=== PATIENT | female | born 1995 | race Caucasian/White ===

== ENCOUNTER 2017-08-07 16:17 | Emergency (ER) | payer SELFPAY ==
[~2017-08-07] VITALS: Ht 157.5 cm; Wt 96.0 kg
[2017-08-07 16:56] VITALS: BP 130/82; PULSE 79; RESP 17; TEMP 98.5; O2SAT 99
--- NOTE | 2017-08-07 17:50 | PD ---
HPI Chief Complaint: Syncope/Near-Syncope Time Seen by Provider: 17:38 Travel History International Travel<30 days: No Contact w/Intl Traveler<30days: No Traveled to known affect area: No History of Present Illness HPI Ms. Mendez comes in complaining of 2 or 3 weeks worth of pain.... And pain to her left adnexal area as she points to her body. She describes that pain as sharp, about 4 or 5 out of 10, nonradiating. Patient denies any alleviating or aggravating factors. Patient denies any associated factors such as fever, rash , nausea, vomiting, diarrhea, No known drug allergy Patient denies any significant past medical history and past surgical history PFSH Social History Tobacco Use: No Allergies-Medications (Allergen,Severity, Reaction): Coded Allergies: No Known Allergies (Unverified , 08/08/17) Reported Meds & Prescriptions Reported Meds & Active Scripts Active Macrobid (Nitrofurantoin Monohydrate Macrocrystals) 100 Mg Capsule 100 Mg PO BID 5 Days Reported Mirena (Levonorgestrel (Iud)) 20 Mcg/24 Hour (5 Years) Iud 1 Ea I-UTERINE ONCE Review of Systems General / Constitutional: No: Fever Eyes: No: Visual changes HENT: No: Headaches Cardiovascular: No: Chest Pain or Discomfort Respiratory: No: Shortness of Breath Gastrointestinal: Positive: Abdominal Pain (Left adnexal) Genitourinary: No: Dysuria Musculoskeletal: No: Pain Skin: No Rash Neurologic: No: Weakness Psychiatric: No: Depression Endocrine: No: Polydipsia Hematologic/Lymphatic: No: Easy Bruising Physical Exam Narrative GENERAL: SKIN: Warm and dry. HEAD: Atraumatic. Normocephalic. EYES: Pupils equal and round. No scleral icterus. No injection or drainage. ENT: No nasal bleeding or discharge. Mucous membranes pink and moist. NECK: Trachea midline. No JVD. CARDIOVASCULAR: Regular rate and rhythm. RESPIRATORY: No accessory muscle use. Clear to auscultation. Breath sounds equal bilaterally. GASTROINTESTINAL: Abdomen soft, nondistended. Mild tenderness to palpation over the left adnexal region. MUSCULOSKELETAL: Extremities without clubbing, cyanosis, or edema. No obvious deformities. NEUROLOGICAL: Awake and alert. No obvious cranial nerve deficits. Motor grossly within normal limits. Five out of 5 muscle strength in the arms and legs. Normal speech. PSYCHIATRIC: Appropriate mood and affect; insight and judgment normal. Data Data Last Documented VS Vital Signs Date Time Temp Pulse Resp B/P (MAP) Pulse Ox O2 Delivery O2 Flow Rate FiO2 08/07/17 21:39 08/07/17 17:55 80 19 100 Room Air 08/07/17 16:56 98.5 Orders Orders Complete Blood Count With Diff (08/07/17 16:58) Comprehensive Metabolic Panel (08/07/17 16:58) Urinalysis - C+S If Indicated (08/07/17 16:58) Ed Urine Pregnancytest Poc (08/07/17 16:58) Gc And Chlamydia Pcr (08/07/17 17:50) Type And Screen (08/07/17 17:50) Beta Hcg (Quant/Titer) (08/07/17 17:54) Us Pelvis (Ques Pr/Ect)W Trans (08/07/17 ) Mandatory Outpatient Referral (08/07/17 20:41) Ed Discharge Order (08/07/17 21:11) Labs Laboratory Tests Test 08/07/17 17:05 08/07/17 17:54 Urine Color YELLOW Urine Turbidity CLEAR Urine pH 6.0 Urine Specific [place] 1.029 Urine Protein TRACE mg/dL Urine Glucose (UA) NEG mg/dL Urine Ketones NEG mg/dL Urine Occult Blood NEG Urine Nitrite NEG Urine Bilirubin NEG Urine Urobilinogen 2.0 MG/DL Urine Leukocyte Esterase SMALL Urine RBC 1 /hpf Urine WBC 6 /hpf Urine Squamous Epithelial Cells 3 /hpf Urine Bacteria RARE /hpf Urine Mucus FEW /lpf Microscopic Urinalysis Comment CULT NOT INDICATED Chlamydia trachomatis DNA (PCR) NOT DETECTED Neisseria gonorrhoeae DNA (PCR) NOT DETECTED White Blood Count 5.2 TH/MM3 Red Blood Count 5.23 MIL/MM3 Hemoglobin 13.5 GM/DL Hematocrit 41.9 % Mean Corpuscular Volume 80.1 FL Mean Corpuscular Hemoglobin 25.7 PG Mean Corpuscular Hemoglobin Concent 32.1 % Red Cell Distribution Width 15.1 % Platelet Count 276 TH/MM3 Mean Platelet Volume 8.8 FL Neutrophils (%) (Auto) 63.3 % Lymphocytes (%) (Auto) 24.1 % Monocytes (%) (Auto) 9.8 % Eosinophils (%) (Auto) 2.0 % Basophils (%) (Auto) 0.8 % Neutrophils # (Auto) 3.3 TH/MM3 Lymphocytes # (Auto) 1.3 TH/MM3 Monocytes # (Auto) 0.5 TH/MM3 Eosinophils # (Auto) 0.1 TH/MM3 Basophils # (Auto) 0.0 TH/MM3 CBC Comment DIFF FINAL Differential Comment Blood Urea Nitrogen 14 MG/DL Creatinine 1.02 MG/DL Random Glucose 71 MG/DL Total Protein 7.6 GM/DL Albumin 3.6 GM/DL Calcium Level 9.0 MG/DL Alkaline Phosphatase 75 U/L Aspartate Amino Transf (AST/SGOT) 11 U/L Alanine Aminotransferase (ALT/SGPT) 17 U/L Total Bilirubin 1.2 MG/DL Sodium Level 138 MEQ/L Potassium Level 4.3 MEQ/L Chloride Level 104 MEQ/L Carbon Dioxide Level 23.3 MEQ/L Anion Gap 11 MEQ/L Estimat Glomerular Filtration Rate 68 ML/MIN Human Chorionic Gonadotropin, Quant 221 MIU/ML [facility] Medical Decision Making Medical Screen Exam Complete: Yes Emergency Medical Condition: Yes Medical Record Reviewed: Yes Differential Diagnosis Ectopic versus TOA versus diverticular disease versus colitis Narrative Course CBC shows no evidence of leukocytosis, no anemia, normal platelet count and no left shift Electrolytes are all within normal limits, normal kidney function, normal liver function, and a quantitative hCG of only 221. UA showed some WBCs and leukocyte esterase positive however no bacteria. Consistent with sterile pyuria Blood bank type is B+ Based on the ultrasound there are 2 complex cysts in the ovary, left. This can be a corpus luteum or but a ectopic cannot be fully excluded, patient feels well enough and is requesting to go home, I advised the patient that she should follow-up with an FOUNDER / CEO, Dr. Morales is someone director motion picture for [facility]. And she is advised to follow-up for serial examinations and to ensure that she is not having early ectopic presentation. She was asked to return in 48 hours for repeat hCG, and to have that information forwarded to Dr. Morales for any further evaluation at that time. However the patient was told should she start having sharp more severe pain and she is recommended to return to the ER right away. Diagnosis Primary Impression: Sterile pyuria Additional Impression: , newly diagnosed Referrals: Radha Morales MD early , hcg 221, ultrasound did not show iup, but did show 2 complex ring enhancing structures on left adnexa. Patient Instructions: Abdominal Pain in (ED), General Instructions, Urinary Tract Infection in Women (DC) Additional Instructions: You are recommended to follow-up in 48 hours to have a repeat hCG quantitative test and your been given a mandatory referral to RUG RECEIVING CLERK Dr. Morales Scripts Nitrofurantoin Monohydrate Macrocrystals (Macrobid) 100 Mg Capsule 100 MG PO BID for Infection for 5 Days, #10 CAP 0 Refills Prov: Shaun Colon MD 08/07/17 Shaun Colon MD August 07, 2017 17:50
[2017-08-07 17:55] VITALS: BP 104/57; PULSE 80; RESP 19; O2SAT 100
[2017-08-07 18:09] LABS: BACTERIA, URINE RARE /hpf; BILIRUBIN, URINE NEG (NEG); BLOOD, URINE NEG (NEG); GLUCOSE,URINE NEG (NEG); KETONE, URINE NEG (NEG); MUCUS URINE FEW /lpf (OCC); NITRITE,URINE NEG (NEG); SQUAMOUS EPITHELIAL CELL URINE 3 /hpf (0-5); URINE COLOR YELLOW (YELLW/STRAW); URINE LEUKOCYTE ESTERASE SMALL (NEG)
[2017-08-07 18:25] LABS: AUTOMATED NEUTROPHIL # 3.3 TH/MM3 (1.8-7.7); BASOPHIL % 0.8 % (0.0-2.0); EOSINOPHIL # 0.1 TH/MM3 (0-0.4); HEMATOCRIT 41.9 % (35.0-46.0); HEMOGLOBIN 13.5 GM/DL (11.6-15.3); LYMPH % 24.1 % (9.0-44.0); LYMPHOCYTE # 1.3 TH/MM3 (1.0-4.8); MEAN CELL VOLUME 80.1 FL (80.0-100.0); MEAN CORPUSCULAR HEMOGLOBIN 25.7 PG (27.0-34.0); MEAN CORPUSCULAR HGB CONC 32.1 % (32.0-36.0); MEAN PLATELET VOLUME 8.8 FL (7.0-11.0); MONO % 9.8 % (0.0-8.0); MONOCYTE # 0.5 TH/MM3 (0-0.9); NEUT % 63.3 % (16.0-70.0); PLATELET COUNT 276 TH/MM3 (150-450); RED BLOOD COUNT 5.23 MIL/MM3 (4.00-5.30); RED CELL DISTRIBUTION WIDTH 15.1 % (11.6-17.2); WHITE BLOOD COUNT 5.2 TH/MM3 (4.0-11.0)
[2017-08-07] MEDS ORDERED: MIREIUD I-UTERINE (18:35)
[2017-08-07 18:45] LABS: ALBUMIN 3.6 GM/DL (3.4-5.0); AST (GOT) 11 U/L (15-37); BICARBONATE 23.3 MEQ/L (21.0-32.0); BLOOD UREA NITROGEN 14 MG/DL (7-18); CHLORIDE 104 MEQ/L (98-107); CREATININE 1.02 MG/DL (0.50-1.00); GLOMERULAR FILTRATION RATE 68 ML/MIN (>89); GLUCOSE,RANDOM 71 MG/DL (74-106); SODIUM (NA) 138 MEQ/L (136-145)
[2017-08-07 18:46] LABS: ALT (GPT) 17 U/L (10-53)
[2017-08-07 18:50] LABS: ALKALINE PHOSPHATASE 75 U/L (45-117); TOTAL BILIRUBIN ADULT 1.2 MG/DL (0.2-1.0); TOTAL PROTEIN 7.6 GM/DL (6.4-8.2)
--- NOTE | 2017-08-07 20:06 | RADRPT ---
EXAM DATE: 08/07/2017 7:57 PM EDT AGE/SEX: 22 years / Female INDICATIONS: Pelvic pain. CLINICAL DATA: This is the patient's initial encounter. Patient reports that signs and symptoms have been present for 1 week and indicates a pain score of 3/10. MEDICAL/SURGICAL HISTORY: . Pelvic pain. None. COMPARISON: No prior [facility] exams available for comparison. MEASUREMENTS: Uterus:__8.4 x 5.4 x 4.3 cm Endometrial Stripe:__4 mm Right Ovary:__ 2.6 x 2.5 x 1.7 cm Left Ovary:__ 4.8 x 3.4 x 2.6 cm FINDINGS: Uterus: There is an IUD in place. There is small amount of fluid within the endometrial cavity. It i s difficult to determine if this represents free fluid within the endometrial cavity versus an elonga mike cystic area measuring 1.0 x 0.3 x 1.0 cm. Right Ovary: Measures Left Ovary: There are 2 adjacent complex masses within the left adnexa measuring 2.2 x 1.7 x 2.0 and 2.3 x 1.7 x 2.3 cm. These both have ringlike appearances. Other: There is mild free fluid in the cul-de-sac. CONCLUSION: 1. No IUP is seen. 2. IUD in place. 3. Fluid within the endometrium which may represent fluid within the endometrial cavity versus an el ongated cystic area measuring 1.0 x 0.3 x 1.0 cm. No embryonic pole or yolk sac is seen within this f luid collection. 4. 2 complex masses seen in the left ovary. These are nonspecific. They both have ringlike appearanc e is. Follow-up is recommended. 5. Mild free fluid in the cul-de-sac. Electronically signed by: Alek Cook MD 08/07/2017 8:05 PM EDT
[2017-08-07] MEDS ORDERED: MACR100C2 PO (20:45)
== END 2017-08-07 21:40 | disposition home or self-care (01) ==
LOC: NEPD 16:17
DX: O23.40 Unspecified infection of urinary tract in pregnancy, unspecified trimester (principal); Z3A.00 Weeks of gestation of pregnancy not specified
CPT/HCPCS: 76700; 76817; 80053; 81001; 84702; 84703; 85025; 86850; 86900; 86901; 87491; 87591; 99284

== ENCOUNTER 2017-08-08 10:32 | Emergency (ER) | payer MEDICAID ==
[~2017-08-08 10:32] MED LIST: MACR100C2 PO; MIREIUD I-UTERINE
[2017-08-08 10:34] VITALS: BP 135/74; PULSE 84; RESP 16; TEMP 98.8; O2SAT 100
--- NOTE | 2017-08-08 12:32 | PD ---
HPI Chief Complaint: Related Problem Time Seen by Provider: 11:00 Travel History International Travel<30 days: No Contact w/Intl Traveler<30days: No Traveled to known affect area: No History of Present Illness HPI The patient is 22 years old. She is a 2 para 1 last menstruation was approximately 3 weeks prior. She was seen here yesterday. The beta hCG was elevated at 250 and her ultrasound was equivocal and 2 cystic-like lesions were seen in the right ovary. The patient has an IUD, Mirena device. She states she return to the ED to be sure she was not having ectopic . She also states she had lower pelvic pain. She has had no bleeding or discharge. No fever or vomiting. She reports a history of STD. She follows with the fitter arm[facility] service in [place]. Patient was also diagnosed with asymptomatic bacteriuria yesterday and was prescribed antibiotics which she filled and started taking. [facility] Past Medical History Medical History: Denies Significant Hx ?: LMP: 07/17/2017 Past Surgical History Surgical History: No Previous Surgery Social History Alcohol Use: No Tobacco Use: No Substance Use: No Allergies-Medications (Allergen,Severity, Reaction): Coded Allergies: No Known Allergies (Unverified , 08/08/17) Reported Meds & Prescriptions Reported Meds & Active Scripts Active Macrobid (Nitrofurantoin Monohydrate Macrocrystals) 100 Mg Capsule 100 Mg PO BID 5 Days Reported Mirena (Levonorgestrel (Iud)) 20 Mcg/24 Hour (5 Years) Iud 1 Ea I-UTERINE ONCE Review of Systems Except as stated in HPI: all other systems reviewed are Neg General / Constitutional: No: Fever Physical Exam Narrative GENERAL: 22-year-old female pleasant well-nourished well-developed no acute distress Vital Signs Date Time Temp Pulse Resp B/P (MAP) Pulse Ox O2 Delivery O2 Flow Rate FiO2 08/08/17 10:34 98.8 84 16 135/74 (94) 100 SKIN: Warm and dry. HEAD: Atraumatic. Normocephalic. EYES: Pupils equal and round. No scleral icterus. No injection or drainage. ENT: No nasal bleeding or discharge. Mucous membranes pink and moist. NECK: Trachea midline. No JVD. CARDIOVASCULAR: Regular rate and rhythm. RESPIRATORY: No accessory muscle use. Clear to auscultation. Breath sounds equal bilaterally. GASTROINTESTINAL: Soft. There is no significant tenderness. MUSCULOSKELETAL: Extremities without clubbing, cyanosis, or edema. No obvious deformities. NEUROLOGICAL: Awake and alert. No obvious cranial nerve deficits. Motor grossly within normal limits. Five out of 5 muscle strength in the arms and legs. Normal speech. PSYCHIATRIC: Appropriate mood and affect; insight and judgment normal. Data Data Last Documented VS Vital Signs Date Time Temp Pulse Resp B/P (MAP) Pulse Ox O2 Delivery O2 Flow Rate FiO2 08/08/17 10:34 98.8 84 16 135/74 (94) 100 Orders Orders Ed Discharge Order (08/08/17 12:23) [facility] Medical Decision Making Medical Screen Exam Complete: Yes Emergency Medical Condition: Yes Medical Record Reviewed: Yes Differential Diagnosis Ectopic, inevitable , intrauterine , UTI Narrative Course The patient returns 24 hours after incidental was found. The ultrasound yesterday was equivocal. Case was discussed with OB hospitalist. In the absence of a peritoneal signs on exam and with normal vital signs I think it is quite unlikely that there is an acute process now. Patient is likely to miscarry in due to the presence of the Mirena. 24-hour repeat beta and ultrasound is likely to be inconclusive and not helpful. Because the patient is stable she was advised to return tomorrow which would be 48 hours. She was also advised to follow-up with on-call obstetrics, Dr. Morales. This was provided to the patient yesterday as well. Referral to [facility] information also provided to the patient. She verbalized understanding. At this point I do not believe there is an ectopic and an ultrasound and additional blood work would not help one way or the other in determining. Diagnosis Primary Impression: Complicated Referrals: Radha Morales MD [facility] Med/Other Pt SpecificInfo: No Change to Meds Disposition: 01 DISCHARGE HOME Condition: Stable Pavan Cadena MD August 08, 2017 12:32
== END 2017-08-08 12:45 | disposition home or self-care (01) ==
LOC: NEPD 10:32
DX: O26.90 Pregnancy related conditions, unspecified, unspecified trimester (principal); Z3A.00 Weeks of gestation of pregnancy not specified
CPT/HCPCS: 99281

== ENCOUNTER 2017-08-13 23:34 | Emergency (ER) | payer MEDICAID ==
[2017-08-13 23:36] VITALS: BP 148/84; PULSE 91; RESP 18; TEMP 98.6; O2SAT 100
--- NOTE | 2017-08-14 00:01 | PD ---
HPI Chief Complaint: Related Problem Time Seen by Provider: 23:47 Travel History International Travel<30 days: No Contact w/Intl Traveler<30days: No Traveled to known affect area: No History of Present Illness HPI 22-year-old female return to the ED for beta-hCG titer. Patient was seen in emergency room 6 days ago at that time with abdominal cramping, nausea vomiting diarrhea. test was positive at that time. Pelvic ultrasound showed no IUP. IUD in place. Complex masses seen in the left ovaries. Patient was advised to follow with local physician. Patient returned to the emergency room next day and was advised to follow with local OB physician. Patient states that she has been unable to have an appointment with local OB and was advised to go to back to ED for evaluation. Patient denies any abdominal pain. Patient denies any vaginal discharge or bleeding. Patient states that the IUD still in place. PFSH Past Medical History Medical History: Denies Significant Hx Diminished Hearing: No Immunizations Current: Yes ?: Past Surgical History Surgical History: No Previous Surgery Social History Alcohol Use: No Tobacco Use: No Substance Use: No Allergies-Medications (Allergen,Severity, Reaction): Coded Allergies: No Known Allergies (Unverified , 08/13/17) Reported Meds & Prescriptions Reported Meds & Active Scripts Active Macrobid (Nitrofurantoin Monohydrate Macrocrystals) 100 Mg Capsule 100 Mg PO BID 5 Days Reported Mirena (Levonorgestrel (Iud)) 20 Mcg/24 Hour (5 Years) Iud 1 Ea I-UTERINE ONCE Review of Systems General / Constitutional: No: Fever Eyes: No: Visual changes HENT: No: Headaches Cardiovascular: No: Chest Pain or Discomfort Respiratory: No: Shortness of Breath Gastrointestinal: No: Abdominal Pain Genitourinary: No: Dysuria Musculoskeletal: No: Pain Skin: No Rash Neurologic: No: Weakness Psychiatric: No: Depression Endocrine: No: Polydipsia Hematologic/Lymphatic: No: Easy Bruising Physical Exam Narrative GENERAL: Well-nourished, well-developed patient. SKIN: Focused skin assessment warm/dry. HEAD: Normocephalic. EYES: No scleral icterus. No injection or drainage. NECK: Supple, trachea midline. No JVD or lymphadenopathy. CARDIOVASCULAR: Regular rate and rhythm without murmurs, gallops, or rubs. RESPIRATORY: Breath sounds equal bilaterally. No accessory muscle use. GASTROINTESTINAL: Abdomen soft, non-tender, nondistended. MUSCULOSKELETAL: No cyanosis, or edema. BACK: Nontender without obvious deformity. No CVA tenderness. Data Data Last Documented VS Vital Signs Date Time Temp Pulse Resp B/P (MAP) Pulse Ox O2 Delivery O2 Flow Rate FiO2 08/13/17 23:36 98.6 91 18 148/84 (105) 100 Orders Orders Beta Hcg (Quant/Titer) (08/13/17 23:52) Labs Laboratory Tests Test 08/14/17 00:03 Human Chorionic Gonadotropin, Quant 143 MIU/ML [facility] Medical Decision Making Medical Screen Exam Complete: Yes Emergency Medical Condition: Yes Interpretation(s) 12:38 AM. Beta hCG 143 Differential Diagnosis Differential diagnosis including , complete AB, ectopic . Narrative Course 22-year-old female returning to ED for beta-hCG titer recheck. Patient has an IUD in place. Patient was positive for 6 days ago. Patient is asymptomatic now. Diagnosis Primary Impression: Complete Patient Instructions: General Instructions Additional Instructions: Follow up with local banquet steward. Return if severe abdominal pain, pelvic pain , vaginal bleeding. Med/Other Pt SpecificInfo: No Meds Exist/No RX given Disposition: DISCHARGE HOME Condition: Stable Kvng Allred MD August 14, 2017 00:01
== END 2017-08-14 00:50 | disposition home or self-care (01) ==
LOC: NEPD 23:34
DX: O03.9 Complete or unspecified spontaneous abortion without complication (principal); Z97.5 Presence of (intrauterine) contraceptive device
CPT/HCPCS: 84702; 99281